=== PATIENT | female | born 1980 | race Two or more races ===

== ENCOUNTER 2024-04-20 08:16 | Emergency (ER) | payer MEDICAID ==
[~2024-04-20] VITALS: Ht 149.9 cm; Wt 86.8 kg
[2024-04-20 08:28] VITALS: BP 133/79; RESP 16; O2SAT 99
[2024-04-20 08:30] VITALS: PULSE 78
[2024-04-20 08:45] LABS: Basophils # (auto) 0 10 ^3/uL (0-0.2); Basophils % (auto) 0.6 % (0.0-2.0); Eosinophils # (auto) 0.2 10 ^3/uL (0-0.8); Eosinophils % (auto) 3.2 % (0.0-7.0); Hemoglobin 12.6 g/dL (12.2-16.2); Lymphocytes # (auto) 1.8 10 ^3/uL (0.4-5.4); Lymphocytes % (auto) 23.7 % (10.0-50.0); Mean Corpuscular Hemoglobin 28.8 pg (28.0-32.0); Mean Corpuscular Hgb Conc. 33.2 g/dL (32.0-36.0); Mean Corpuscular Volume 86.7 fL (80.0-100.0); Monocytes # (auto) 0.4 10 ^3/uL (0-1.3); Monocytes % (auto) 5.9 % (0.0-12.0); Neutrophils % (auto) 66.6 % (37.0-80.0); Red Blood Cells 4.38 10^6/uL (4.0-5.20); Red Cell Distribution Width 15.7 % (11.8-14.3); White Blood Cell 7.5 10^3/uL (4.4-10.8)
[2024-04-20 09:14] LABS: Anion Gap 6 (5-15); Carbon Dioxide 29 mmol/L (20-30); Chloride 106 mmol/L (98-107); Potassium 3.6 mmol/L (3.5-5.1); Sodium 141 mmol/L (136-145)
[2024-04-20 09:15] LABS: Calcium 9.7 mg/dL (8.7-10.4)
[2024-04-20 09:19] LABS: Glucose 99 mg/dL (74-106)
[2024-04-20 09:20] LABS: BUN/Creatinine Ratio 9.9 (10.0-20.0); Blood Urea Nitrogen 9 mg/dL (9-23)
== END 2024-04-20 09:46 | disposition left against medical advice (07) ==
LOC: ER 08:16
DX: R55 Syncope and collapse (principal); G90.9 Disorder of the autonomic nervous system, unspecified; Z90.49 Acquired absence of other specified parts of digestive tract
CPT/HCPCS: 36415; 80048; 82962; 85025